=== PATIENT | female | born 1980 | race African-American/Black ===

== ENCOUNTER 2022-07-27 10:05 | Emergency (ER) | payer MEDICAID, OTHER, SELFPAY ==
[2022-07-27 10:10] VITALS: BP 124/102; PULSE 74; TEMP 36.3; O2SAT 98; BMI 34.1
--- NOTE | 2022-07-27 10:22 | ED_ITS ---
HPI - General Adult General Time Seen by Provider: 10:23 Date Seen: 07/27/22 Chief complaint: Ear/Nose/Throat Problem Stated complaint: lump on right ear Time Seen by Provider: 07/27/22 10:22 Source: patient and RN notes reviewed Mode of arrival: ambulatory Limitations: no limitations History of Present Illness HPI narrative: Patient is a 42-year-old female coming in with pain and swelling in front of her right ear. She feels like it is starting to affect the ear canal. She has had no fevers. She started with a small bump in front of the right ear couple days ago. It has gotten increasingly painful and swollen. She thought it was just maybe a keloid initially. Her keloids will flare with her menstrual cycles. She is a known significant keloid former. This is making her anxious. She has significant anxiety and she feels it is affecting her mental health. She states she is fine. Sounds as if she had a traumatic experience with a bug in her ear when she was younger. She has seemingly is settling down just with me evaluating her. Related Data Home Medications Medication Instructions Recorded Confirmed aripiprazole 20 mg tablet (Abilify) 20 mg PO DAILY 07/27/22 07/27/22 Previous Rx's Medication Instructions Recorded lorazepam 0.5 mg tablet 0.5 mg PO BID PRN anxiety #60 tabs 05/17/22 zolpidem 12.5 mg tablet,extended 12.5 mg PO QPM #60 tabs 05/17/22 release,multiphase amoxicillin 875 mg-potassium 1 tab PO BID #20 tabs 07/27/22 clavulanate 125 mg tablet Allergies Allergy/AdvReac Type Severity Reaction Status Date / Time No Known Drug Allergies Allergy Verified 07/27/22 10:14 Review of Systems Status of ROS: Reports: 6 or more systems reviewed and unremarkable except as noted in History and below PFSH PFSH Social History Smoking Status: Former smoker Do you use any of these nicotine containing products: None Second hand tobacco smoke exposure: No How often do you have a drink containing alcohol: never How often do you have six or more drinks on one occasion: Never AUDIT-C Alcohol total score: 0 Non-prescribed substance use: marijuana (any form) Exam Narrative: Exam Narrative: Patient is a 42-year-old female that initially anxious crying but settles during my interaction. She overall is a very pleasant araceli patient. Const: Vital Signs, click to edit/add: Vital Signs - 24 hr 07/27/22 10:10 07/27/22 13:16 07/27/22 14:20 Temperature 97.4 F L Pulse Rate [Right Pulse Oximeter] 74 51 L 54 L Blood Pressure [Le ft Upper Arm] 124/102 H 124/82 128/87 Pulse Oximetry 98 100 99 Oxygen Delivery Me thod Room Air Room Air Room Air 07/27/22 14:50 Temperature Pulse Rate [Right Pulse Oximeter] Blood Pressure [Le ft Upper Arm] 123/95 H Pulse Oximetry Oxygen Delivery Me thod Documenting provider has reviewed patient's vital signs: yes Common normals: no apparent distress, oriented x3, no limitations, healthy appearing, alert and well nourished General appearance: cooperative, comfortable and well kempt Nutritional appearance: overweight HENMT: Common normals: normocephalic, head/scalp atraumatic, hearing grossly normal bilaterally, TM's normal bilaterally, external nose normal, nasal mucous membranes and turbinates normal, moist oral mucous membranes, oropharynx normal, dentition normal and gingiva normal Head and scalp: normocephalic and atraumatic Nose: external nose normal and nasal mucous membranes and turbinates normal Tympanic membrane: TM's normal bilaterally Other: She has swelling and fluctuance anterior to her right ear, seems superficial. It is not overly warm, is quite tender when I palpate. Her canal may have some anterior wall erythema but she has been putting a cotton ball in there. Seems a cotton ball makes her feel better. The swelling extends onto the tragus which is maybe why she is feeling some pain into the canal. It seems superficial and very fluid filled. I do not feel any lymphadenopathy. Eye: Common normals: PERRL, EOMs intact bilaterally, conjunctivae normal and no scleral icterus Conjunctiva: conjunctiva(e) normal Pupil: PERRL Neck & C-Spine: Common normals: full ROM, no lymphadenopathy, supple, no meningeal signs, no JVD and thyroid normal Thyroid: thyroid normal Resp: Common normals: normal respiratory effort, no retractions, no use of accessory muscles and clear to auscultation bilaterally Auscultation: clear to auscultation bilaterally Cardio: Common normals: no JVD, regular rate, regular rhythm, S1 normal heart sound, S2 normal heart sound, no gallops, no clicks and no murmurs Rate: regular rate Rhythm: regular rhythm Heart sounds: S1 normal and S2 normal Neuro: Common normals: oriented x3 Sensorium/orientation: alert Meningeal signs: no meningeal signs Psych: Appearance: well kempt Course Course Hospital Course: Did review with our radiologist and he recommended soft tissue neck CT with IV contrast. This was explained to patient. We will get baseline labs. She is much better, seeming much less anxious at this time, does seem comfortable. We will continue to monitor. This seems like it could be infected cystic lesion, do not think it is parotid gland but imaging will help delineate exactly what this is. Reevaluation(s) Reevaluation #1: Reviewed patient's CT findings with the probable infected branchial cleft cyst, overlying cellulitis. Reviewed with her that I had spoken with the ENT Dr. Garnett. He recommended attempting to obtain fluid. We discussed opening with scalpel versus trying needle aspiration. Given that she has a keloid former he did recommend trying to aspirate with needle instead. I came in with lidocaine to anesthetize and attempt the aspiration. Patient became extremely anxious stated she needed to leave, stated she could not handle it. She states she knows that this is not normal response but this is what she was dealing with at the time. I was able to talk her down to wait and get IV antibiotics. She s tates she does not think she will be able to do any drainage of this unless she is put to sleep. I reviewed with her that there is no way that we are going to be able to do a surgical incision and drainage of this at this time. We are going to put the attempted aspirating on hold for the time being, I think it is more important to get IV antibiotics in her before she leaves against medical advice. I have ordered 3 g IV Unasyn, 15 mg IV Toradol and we are going to give her 0.5 mg IV Ativan. She states her will be driving her. We will re- attempt this once she has had a time to settle down. I have instructed the nurses that if she decides to leave AMA, to please find out of pharmacy where consent the antibiotics. Time: 13:41 Reevaluation #2: Patient was much calmer, was willing to proceed. I a yann up 2 mL of 1% lidocaine, used a 30 gauge short needle and found out 1 mL over the maximum area of fluctuance. I was able to aspirate out a very small amount of bloody purulent looking fluid. After discussion with patient, I recommended that we try to open this up a bit more so the abscess area could drain. The risk is forming keloid and she does understand that. I subsequently did a small vertical incision right over the area that I aspirated and about 1-2 mL of mucopurulent material came out, there were some bleeding with this as well. Patient overall tolerated the procedure quite well. She is completing her antibiotics at this point. I do think given the normal white count, no fever, discussion with ENT that she will be able to try outpatient management. Time: 14:43 Consultations Consultation #1: Spoke with Dr. Garnett on-call ENT via phone. He recommended IV antibiotics and then outpatient antibiotics, follow-up with ENT. If worsening may need further treatment. He did recommend attempting to aspirate the probable abscess. After discussing that she is a keloid former, he recommended trying this via needle. Note, we did wait a period of time for me to be able to talk to Dr. Garnett. My initial page was at 12:43 p.m.. Time: 13:27 Vital Signs Vital signs: Initial Vital Signs Temperature 97.4 F L 07/27/22 10:10 Temperature Source Temporal Artery Scan 07/27/22 10:10 Pulse Rate 74 07/27/22 10:10 Blood Pressure 124/102 H 07/27/22 10:10 Blood Pressure Mean 109 07/27/22 10:10 Blood Pressure Position Sitting 07/27/22 10:10 Pulse Oximetry 98 07/27/22 10:10 Oxygen Delivery Method 07/27/22 10:10 Vital Signs Temperature 97.4 F L 07/27/22 10:10 Pulse Rate 74 07/27/22 10:10 Blood Pressure 124/102 H 07/27/22 10:10 Pulse Oximetry 98 07/27/22 10:10 Oxygen Delivery Method 07/27/22 10:10 Temperature 97.4 F L 07/27/22 10:10 Pulse Rate 54 L 07/27/22 14:20 Blood Pressure 123/95 H 07/27/22 14:50 Pulse Oximetry 99 07/27/22 14:20 Oxygen Delivery Method 10/20/22 14:20 Medical Decision Making Lab Data Lab results reviewed: Yes I reviewed the patient's lab results Labs: Lab Results 07/27/22 07/27/22 Range/Units 11:00 11:00 WBC 7.13 (4.50-11.00) K/uL RBC 4.86 (4.00-5.20) m/uL Hgb 13.6 (12.0-16.0) gm/dL Hct 43.0 (33.0-51.0) % MCV 89 (80-100) fL MCH 28 (26-34) pg MCHC 32 (32-36) gm/dL RDW Coeff of Serena 13.3 (11.5-15.5) % Plt Count 355 (140-440) K/uL Neut % (Auto) 49.9 (42.0-72.0) % Lymph % (Auto) 36.2 (20-44) % Hancock % (Auto) 8.6 (0.0-11.0) % Eos % (Auto) 4.5 (0.0-7.0) % Baso % (Auto) 0.7 (0.0-3.0) % Neut # (Auto) 3.56 (1.7-7.0) K/uL Lymph # (Auto) 2.58 (0.90-2.90) K/uL Hancock # (Auto) 0.60 (0.00-0.90) K/UL Eos # (Auto) 0.32 (0.00-0.50) K/uL Baso # (Auto) 0.05 (0.00-0.30) K/uL Abs Immat Gran (auto) 0.01 (0.00-0.30) K/uL Sodium 136 (135-149) mmol/L Potassium 4.1 (3.6-5.1) mmol/L Chloride 108 (96-114) mmol/L Carbon Dioxide 21 (20-32) mmol/L BUN 10 (5-24) mg/dL Creatinine 0.8 (0.5-1.5) mg/dL Estimated Creat Clear 89.08 Estimated GFR 94 ml/min Glucose 86 (60-115) mg/dL Calcium 9.5 (8.4-10.6) mg/dL C-Reactive Protein < 0.5 L (0.5-1.0) mg/dL Imaging Data CT soft tissue neck with IV contrast: Attestation: I have reviewed the pertinent imaging results. Radiologist's impression: Patient: HEATH WARE Facility:?[facility] Patient ID:?[id number] :?1980 Study:?CT ST Neck W/ISOVUE 370 100CC-07/27/2022 11:50:17 AM Ordering Physician:Analilia Buckner Final Report: INDICATION: right facial swelling/pain ant to ear TECHNIQUE: CT soft tissue of the neck was acquired with 100 cc Isovue 370 IV contrast. COMPARISON: None. FINDINGS: Skull base: Unremarkable. Pharynx/Larynx/Trachea: Epiglottis is normal. Airway is patent. Adjacent soft tissues are normal. Salivary glands: Normal bilateral submandibular glands and the parotid gland. Thyroid gland: Unremarkable. No significant nodules. Lymph nodes: No enlarged lymph nodes by size criteria. Vessels: Unremarkable for age. Bones: Unremarkable for age. Misc: Superficial right preauricular soft tissue density measuring 3.0 x 1.3 by 4.0 cm (axial image 3 image 17). There is central heterogenous hypodensity measuring 0.9 x 0.7 by 1.1 cm. There is surrounding fat stranding and hypodense/and inflamed appearance of the superficial right parotid gland. Small subcentimeter soft tissue nodule along the lower left neck which is nonspecific. Lung apices: Unremarkable. IMPRESSION: Superficial right preauricular soft tissue density measuring up to 4 cm. There is central heterogenous hypodensity measuring up to 1.1 cm. There is surrounding fat stranding and hypodense/and inflamed appearance of the superficial right parotid gland. The mass is indeterminate with malignancy not excluded although felt less likely. An infected branchial cleft cyst is a more likely consideration. The central hypodensity suspicious for developing phlegmon/abscess. Surrounding inflammation is suspicious for cellulitis and possibly adjacent parotitis. d/w Dr. Banda at 12:30 PM 07/27/2020. Please note that all CT scans at this facility use dose modulation, iterative reconstruction, and/or weight-based dosing when appropriate to reduce radiation dose to as low as reasonably achievable. Dictated by Obie Conklin MD @ 07/27/2022 12:25:16 PM (Electronic Signature) Critical Care Time Critical Care Time Critical Care Time: No Discharge Plan Discharge Clinical Impression: Abscess, Cellulitis, Branchial cyst Patient Disposition: Home, Self-Care Condition: Stable Instructions: Cellulitis (ED), Abscess Incision and Drainage (DC) Additional Instructions: Start Augmentin tonight and take as prescribed. Would recommend warm compresses to your face to help decrease infection. Fine to take Tylenol and/or ibuprofen per bottle directions as needed for discomfort. This may continue to drain on your face which will allow the infection to drain out. May need to change bandages accordingly. Need to schedule followup in clinic next week with ENT Dr Vital, call [phone] to get scheduled for an appointment. In the interim, if you develop fever, this infection is worsening with increasing pain, increasing swelling, have further concerns, return to the ER for further evaluation. Activity Level: Activity as Tolerated Discharge Diet: Regular Prescriptions: New amoxicillin-pot clavulanate 875-125 mg tablet 1 tab PO BID Qty: 20 0RF No Action aripiprazole [Abilify] 20 mg tablet 20 mg PO DAILY zolpidem 12.5 mg tablet,ext release multiphase 12.5 mg PO QPM Qty: 60 2RF lorazepam 0.5 mg tablet 0.5 mg PO BID PRN (Reason: anxiety) Qty: 60 2RF Follow Up/Referrals: Jesse Dalton MD [Primary Care Provider] - Stand Alone Forms: [employer] Info Instructions
--- NOTE | 2022-07-27 10:32 | CRLHL7_ITS ---
For Patients: As a result of the Century Cures Act, medical imaging exams and procedure reports are released immediately into your electronic medical record. You may view this report before your referring provider. If you have questions, please contact your health care provider. INDICATION: right facial swelling/pain ant to ear TECHNIQUE: CT soft tissue of the neck was acquired with 100 cc Isovue 370 IV contrast. COMPARISON: None. FINDINGS: Skull base: Unremarkable. Pharynx/Larynx/Trachea: Epiglottis is normal. Airway is patent. Adjacent soft tissues are normal. Salivary glands: Normal bilateral submandibular glands and the parotid gland. Thyroid gland: Unremarkable. No significant nodules. Lymph nodes: No enlarged lymph nodes by size criteria. Vessels: Unremarkable for age. Bones: Unremarkable for age. Misc: Superficial right preauricular soft tissue density measuring 3.0 x 1.3 by 4.0 cm (axial image 3 image 17). There is central heterogenous hypodensity measuring 0.9 x 0.7 by 1.1 cm. There is surrounding fat stranding and hypodense/and inflamed appearance of the superficial right parotid gland. Small subcentimeter soft tissue nodule along the lower left neck which is nonspecific. Lung apices: Unremarkable. IMPRESSION: Superficial right preauricular soft tissue density measuring up to 4 cm. There is central heterogenous hypodensity measuring up to 1.1 cm. There is surrounding fat stranding and hypodense/and inflamed appearance of the superficial right parotid gland. The mass is indeterminate with malignancy not excluded although felt less likely. An infected branchial cleft cyst is a more likely consideration. The central hypodensity suspicious for developing phlegmon/abscess. Surrounding inflammation is suspicious for cellulitis and possibly adjacent parotitis. d/w Dr. Banda at 12:30 PM 07/27/2020. Please note that all CT scans at this facility use dose modulation, iterative reconstruction, and/or weight-based dosing when appropriate to reduce radiation dose to as low as reasonably achievable. Dictated by Obie Conklin MD @ 07/27/2022 12:25:16 PM (Electronically Signed)
[2022-07-27 11:07] LABS: Basophils Absolute Auto 0.05 K/uL (0.00-0.30); Basophils Percent Auto 0.7 % (0.0-3.0); Eosinophils Absolute Auto 0.32 K/uL (0.00-0.50); Eosinophils Percent Auto 4.5 % (0.0-7.0); Hemoglobin* 13.6 gm/dL (12.0-16.0); Immature Granulocytes Abs Auto 0.01 K/uL (0.00-0.30); Lymphocytes Absolute Auto 2.58 K/uL (0.90-2.90); Lymphocytes Percent Auto 36.2 % (20-44); Mean Corpuscular HGB Conc 32 gm/dL (32-36); Mean Corpuscular Hemoglobin 28 pg (26-34); Mean Corpuscular Volume 89 fL (80-100); Monocytes Percent Auto 8.6 % (0.0-11.0); Neutrophils Absolute Auto 3.56 K/uL (1.7-7.0); Neutrophils Percent Auto 49.9 % (42.0-72.0); Platelet Count* 355 K/uL (140-440); RDW Coefficient of Variation % 13.3 % (11.5-15.5); Red Blood Count 4.86 m/uL (4.00-5.20); White Blood Count* 7.13 K/uL (4.50-11.00)
[2022-07-27 11:16] LABS: Slide Review Reflex No
[2022-07-27 11:24] LABS: Chloride* 108 mmol/L (96-114); Sodium* 136 mmol/L (135-149)
[2022-07-27 11:25] LABS: Potassium* 4.1 mmol/L (3.6-5.1)
[2022-07-27 11:27] LABS: Creatinine* 0.8 mg/dL (0.5-1.5); Est. Creatinine Clearance* 89.08; Estimated Glomerular Filt Rate 94 ml/min
[2022-07-27 11:28] LABS: Blood Urea Nitrogen* 10 mg/dL (5-24); Calcium* 9.5 mg/dL (8.4-10.6); Carbon Dioxide* 21 mmol/L (20-32); Glucose* 86 mg/dL (60-115)
[2022-07-27 12:32] LABS: C Reactive Protein* < 0.5 mg/dL (0.5-1.0)
[2022-07-27 13:16] VITALS: BP 124/82; PULSE 51; O2SAT 100
[2022-07-27] MEDS: KETOROLAC 15 MG/ML inj IVP (13:45)
[2022-07-27] MEDS: LORazepam 2 MG/ML inj 0.5 MG IVP (13:45)
[2022-07-27] MEDS: AMPICILLIN/SULBACTAM 3 GM in 0.9 % SODIUM CHLORIDE Mini-bag 100 ML IVPB (14:05)
[2022-07-27 14:20] VITALS: BP 128/87; PULSE 54; O2SAT 99
[2022-07-27 14:50] VITALS: BP 123/95
== END 2022-07-27 14:58 | disposition home or self-care (01) ==
PROVIDERS: Emergency Provider Family Medicine; PCP Family Medicine
DX: H60.01 Abscess of right external ear (principal)
CPT/HCPCS: 10060; 36415; 70491; 80048; 85025; 86140; 87070; 96365; 96375; 99284; J0295; J1885; J2060; Q9967

== ENCOUNTER 2024-07-07 14:48 | Outpatient (CLI) | payer MEDICAID, SELFPAY ==
--- OUTSIDE RECORDS SUMMARY | 2024-07-07 15:22 | XMS_ITS | Clinical Summary ---
Author Organization [facility] [employer] [facility] [employer] Address [place], [place] [address] Care Team Providers Care Chain Offbearer Name Role Phone Nikki Watts MD Unavailable Jesse Serrano MD Primary Care Provider [phone] Allergies No known active allergies Medications Medication Sig Dispensed Refills Start Date End Date Status ibuprofen (ADVIL; MOTRIN) 200 mg tablet Take 400 mg by mouth 4 times daily if needed. Active acetaminophen (TYLENOL EXTRA STRGTH) 500 mg tabletIndications: Cellulitis of right lower extremity Take 2 tablets by mouth 3 times daily. Max acetaminophen dose: 4000mg in 24 hrs. 90 tablet 11/17/2016 Active Foam Bandage (MEPILEX) 4 X 4 bndgIndications:Ce llulitis of right lower extremity Apply topically to affected area(s). 30 Each 1 11/17/2016 Active Gauze Bandage 4 1/2 X 4 -yard bndgIndications:Ce llulitis of right lower extremity Apply topically to affected area(s). 4 Each 11/17/2016 Active sodium chloride 0.9% 0.9 % irrigationIndicati ons:Cellulitis of right lower extremity Use for wet to dry dressing changes 1000 mL 1 11/17/2016 Active Foam Bandage-Silver Sulfate (MEPILEX AG) 6 X 6 bndgIndications:Ce llulitis of right lower extremity,Keloid of skin Apply topically to affected area(s). 30 Each 02/07/2017 Active ARIPiprazole (ABILIFY) 20 mg tabletIndications: Depression, major, recurrent, moderate (HC) 1/2 tablet po Q AM for 7 days, then 1 tablet po Q AM 30 tablet 1 01/17/2018 Active LORazepam (ATIVAN) 1 mg tabletIndications: Severe episode of recurrent major depressive disorder, without psychotic features (HC) TAKE ONE TABLET BY MOUTH EVERY 6 HOURS NEEDED FOR ANXIETY 90 tablet 1 01/17/2018 Active zolpidem CR (AMBIEN CR) 12.5 mg Extended-Release tabletIndications: Insomnia, unspecified type TAKE 1 TABLET BY MOUTH EVERY DAY AT BEDTIME NEEDED 30 tablet 1 01/17/2018 Active sertraline (ZOLOFT) 100 mg tabletIndications: Major depressive disorder, recurrent episode, moderate (HC) One tablet orally at bedtime 79 tablet 09/02/2018 Active Active Problems Problem Noted Date Diagnosed Date Major depressive disorder, recurrent episode, mo derate 01/25/2017 Uses marijuana 11/15/2016 Right thigh pain 11/15/2016 Acute post-operative pain 11/15/2016 Cellulitis and abscess of thigh 11/07/2016 Keloid of skin 02/24/2016 PTSD (post-traumatic stress disorder) 02/24/2016 Anemia, unspecified 01/07/2011 Cellulitis of breast 12/25/2010 Ear pit History of keloid of skin Resolved Problems Problem Noted Date Diagnosed Date Resolved Date Anxiety 11/15/2016 02/07/2017 Amphetamine use disorder, mi ld, in sustained remission 11/15/2016 03/04/2017 Overview (11/15/2016): Hx of use 01/2015 Bipolar affective disorder 11/07/2016 0 02/07/2017 PTSD (post-traumatic stress disorder) 11/07/2016 02/07/2017 Depression 07/15/2011 02/07/2017 Gram positive sepsis 12/28/2010 016 Acute renal failure with tubular necrosis 12/28/2010 02/24/2016 Overview (12/28/2010): Secondary to sepsis and nonsteroidal antiinflammatory drugs. Bipolar 2 disorder 12/25/2010 7 Immunizations Name Administration Dates Next Due HepA-HepB (Twinrix) 09/17/2015 Influenza, IIV3 (Age >=3 years) 12/29/2010 Influenza, IIV4 06/28/2016 Td (Age >=7 Years) 06/27/2005 Tdap 06/28/2016 Family History Medical History Relation Name Comments Diabetes Maternal Grandmother Diabetes Mother Relation Name Status Comments Maternal Grandmother Mother Social History Tobacco Use Types Packs/Day Years Used Date Smoking Tobacco: Former Cigarettes Q uit: 10/08/2018 Smokeless Tobacco: Never Tobacco Cessation:Counseling Given: Not Answered Alcohol Use Standard Drinks/Week Comments Yes 0 (1 standard drink = 0.6 oz pur e alcohol) Social PHQ-2 Answer Date Recorded PHQ-2 Score 4 12/10/2018 Social Connections Answer Date Recorded Frequency of Communication with Friends and Fami ly Not on file 11/07/2022 Sex and Gender Information Value Date Recorded Sex Assigned at Not on file Gender Identity Not on file Sexual Orientation Not on file Obstetrics History Last Filed Vital Signs Vital Sign Reading Time Taken Comments Blood Pressure 101/61 10/24/2022 1:00 PM TRANSIT MIX OPERATOR Pulse 75 10/24/2022 1:00 PM TRANSIT MIX OPERATOR Temperature 36.8 ??C (98.3 ??F) 10/24/2022 11:[address] Respiratory Rate 16 10/24/2022 12:00 PM TRANSIT MIX OPERATOR Oxygen Saturation 99% 10/24/2022 1:00 PM TRANSIT MIX OPERATOR Inhaled Oxygen Concentration - - Weight 100.9 kg (222 lb 8 oz) 10/24/2022 7:18 AM TRANSIT MIX OPERATOR Height 168.9 cm (5' 6.5) 10/24/2022 7:18 AM TRANSIT MIX OPERATOR Body Mass Index 35.37 10/24/2022 7:18 AM TRANSIT MIX OPERATOR Plan of Treatment Health Maintenance Due Date Last Done Comments Hepatitis C screening for age 18-79 1998 BMI (ht and wt on same day) for age 18+ 11/22/2017 11/22/2016, 06/28/2016, 12/16/2015 Depression screening for age 12+ 01/17/2019 01/17/2018, 01/17/2018, 01/17/2018, Additional history exists Pap test for age 21-65 06/18/2022 9, 06/18/2019, 06/28/2016 COVID-19 vaccine series ( season) 2024 11/08/2021, 01/28/2021, 01/07/2021 Influenza for age 9-49 06/08/2024 06/28/2016, 2010 Tetanus booster 06/28/2026 06/28/2016, 06/27/2005 HIV for age 15-65 Completed 06/28/2016 Tdap Completed 06/28/2016 Pneumococcal series for age 6-64 Aged Out No longer eligible based on patient's age to complete this topic Procedures Procedure Name Priority Date/Time Associated Diagnosis Comments RISK COMPLIANCE ANALYST THIN PREP PAP SCREEN IMAGED Routine 06/18/2019 12:30 PM CDT ANTI HIV 1/2 Routine 06/28/2016 2:56 PM CDT Screen for STD (sexually transmitted disease) from Last 3 Months or Most Recently Relevant to Health Maintenance Results * RISK COMPLIANCE ANALYST THIN PREP PAP SCREEN IMAGED (06/18/2019 12:30 PM CDT) Case Report Gynecologic Cytology Report ? Case: [id number] ? Authorizing Provider: ??Jesse Dalton MD ? Collected: ? 06/18/2019 1230 ? Ordering Location: ? [facility] ?Received: ?06/20/2019 0840 ? First Screen: ?Raghu Davies ? Specimen: ?RISK COMPLIANCE ANALYST ThinPrep Vial Screening, Cervical/Vaginal ? 06/25/2019 2:27 PM CDT [facility] INTERPRETATION/ RESULT NEGATIVE FOR INTRAEPITHELIAL LESION OR MALIGNANCY (NIL) (none) 06/25/2019 2:27 PM CDT [facility] IMEN ADEQUACY Satisfactory for evaluation Endocervical component present 06/25/2019 2:27 PM CDT [facility] HPV REQUEST HPV and PAP 06/25/2019 2:27 PM CDT [facility] Date of LMP 05/25/2019 06/25/2019 2:27 PM CDT [facility] Last Pap Date 06/25/2019 2:27 PM CDT [facility] Comment:2016 Last Pap Result NIL 9 2:27 PM CDT [facility] Automated Review Successful 06/25/2019 2:27 PM CDT [facility] Comment:Specimen processed s uccessfully by automated aqua ammonia operator device, ThinPrep Imaging System, [employer] ANCILLARY TESTING RISK COMPLIANCE ANALYST HPV Ordered, Please see separate report 06/25/2019 2:27 PM CDT [facility] Note The pap test is a screening technique, not a diagnostic procedure. ??It is used primarily to screen for squamous cancers and precursor lesions. ??Published studies have shown that it is subject to both false negative and false positive results. ??The pap test should not be used as the sole means to diagnose or exclude pre-malignant and malignant lesions. Cytology is screened and interpreted at [facility] - [address], [place] [address] [facility] - [address] [place] [address]; [place] [address] and [facility] - [address]; [place] [address] and [facility] [address]; [place] [address] 06/25/2019 2:27 PM CDT [facility] Other (Cervical/Vagina l) 06/18/2019 12:30 PM CDT 06/20/2019 8:40 AM CDT Jesse Dalton MD PATHOLOGY/CYTOLOGY [facility] [address] [place] [address], [place] * ANTI HIV 1/2 (06/28/2016 2:56 PM CDT) HIV-1/HIV-2 ANTIBODY Non-Reacti ve Non-Reacti ve 06/28/2016 7:55 PM CDT [facility] Blood BLOOD SPECIMEN / Unknown Venipuncture / Unknown 06/28/2016 2:56 PM CDT 06/28/2016 2:56 PM CDT Narrative [facility] - 06/28/2016 7:55 PM CDT HIV-1 p24 and HIV-1/HIV-2 Ab not detected Casandra Nieves NP SEND OUTS Performing Organization Address [facility] Co de Phone Number [facility] [address] [place] [phone], [place] from Last 3 Months or Most Recently Relevant to Health Maintenance Advance Directives * Full Code (Latest Code Status on File) Date Activated Date Inactivated Comments 10/24/2022 7:07 AM 10/24/2022 3:36 PM Question Answer Comments Code Status Discussion: Unable to Assess Preferences, Provider to review later * Full Code Date Activated Date Inactivated Comments 11/13/2016 1:40 AM 11/17/2016 1:33 PM * Full Code Date Activated Date Inactivated Comments 11/08/2016 9:59 AM 11/11/2016 3:00 PM * Full Code Date Activated Date Inactivated Comments 07/15/2011 1:57 AM 07/19/2011 3:01 PM * Full Code Date Activated Date Inactivated Comments 01/07/2011 1:43 PM 01/09/2011 2:55 PM Care Teams Chain Offbearer Relationship Specialty Start Date End Date Jesse Dalton MD PCP - General Family Practice 10/24/22 Nikki Watts MD Psychiatry Psychiatry 05/17/17
== END 2024-07-07 14:49 | disposition home or self-care (01) ==
PROVIDERS: PCP Family Medicine; Visit Provider Family Medicine
DX: Z13.228 Encounter for screening for other metabolic disorders (principal); Z13.220 Encounter for screening for lipoid disorders; Z13.29 Encounter for screening for other suspected endocrine disorder; Z11.59 Encounter for screening for other viral diseases
CPT/HCPCS: 80053; 80061; 84443; 86803

== ENCOUNTER 2024-10-24 13:26 | Outpatient (CLI) | payer MEDICARE, SELFPAY ==
--- NOTE | 2024-10-24 13:40 | CRLHL7_ITS ---
For Patients: As a result of the Cures Act, medical imaging exams and procedure reports are released immediately into your electronic medical record. You may view this report before your referring provider. If you have questions, please contact your health care provider. BILATERAL SCREENING MAMMOGRAM WITH COMPUTER-AIDED DETECTION AND TOMOSYNTHESIS TECHNIQUE: CC and MLO views were obtained. These mammographic images have been obtained using full-field digital technique. These mammographic images were interpreted with the benefit of computer-aided detection. Breast Tomosynthesis was used in this interpretation. COMPARISON FILM: 01/05/22, 12/07/20. FINDINGS: The breasts are almost entirely fatty. IMPRESSION: There is no radiographic evidence for malignancy. ASSESSMENT: BI-RADS Category 2: Benign RECOMMENDATION: Routine screening mammogram in 1 year. A lay language report of this examination will be provided to the patient. Thompson Riddle M.D. Diagnostic/Nuclear Medicine Radiologist [email or web address] SYLVIA/manny SP/Dictated by: Thompson Riddle MD @ 10/29/2024 9:16:00 AM (Electronically Signed)
== END 2024-10-24 13:27 | disposition home or self-care (01) ==
LOC: MAMMO 13:27
PROVIDERS: PCP Family Medicine; Visit Provider Family Medicine
DX: Z12.31 Encounter for screening mammogram for malignant neoplasm of breast (principal)
CPT/HCPCS: 77063; 77067

== ENCOUNTER 2025-01-12 13:05 | Outpatient (CLI) | payer MEDICARE, SELFPAY ==
--- NOTE | 2025-01-20 12:27 | W.PM.SLEEP ---
Sleep Study Details Details Interpreting Provider: Amanuel Date of Sleep Study: 01/12/25 Sleep Study Details: STUDY TYPE:? Home unattended ? BMI:? 29.4 ORDERING PROVIDER:? Amanuel INDICATION:? Concern about sleep apnea ? SLEEP SUMMARY:? 526 minutes monitored RESPIRATORY SUMMARY:? AHI 12.3 Low oxygen 82 5.1% of study oxygen less than 90% Snoring 17.6% PERIODIC LIMB MOVEMENTS OF SLEEP:? Not recorded CARDIAC:? Range 53-119, mean 73.9 beats per minute IMPRESSION:? Mild obstructive sleep apnea with significant desaturations RECOMMENDATION: Treatment options include CPAP dental appliance and/or airway expansion surgery.
== END 2025-01-12 13:06 | disposition home or self-care (01) ==
LOC: SLEEP 13:06
PROVIDERS: PCP Family Medicine; Visit Provider Family Medicine
DX: G47.33 Obstructive sleep apnea (adult) (pediatric) (principal)
CPT/HCPCS: 95806